=== PATIENT | female | born 1985 | race Caucasian/White ===

== ENCOUNTER 2023-02-07 22:13 | Outpatient (CLI) | payer OTHER, SELFPAY | END 2023-02-07 22:14 | disposition home or self-care (01) | LOC: AMB 02-10 12:27 | PROVIDERS: PCP Family Medicine; Visit Provider Internal Medicine | DX: S89.92XA Unspecified injury of left lower leg, initial encounter (principal); W00.0XXA Fall on same level due to ice and snow, initial encounter; Y92.007 Garden or yard of unspecified non-institutional (private) residence as the place of occurrence of the external cause | CPT/HCPCS: A0425; A0433 ==

== ENCOUNTER 2023-02-07 22:52 | Emergency (ER) | payer OTHER, SELFPAY ==
[2023-02-07 23:04] VITALS: BP 143/91; PULSE 96; RESP 20; TEMP 36.6; O2SAT 98; BMI 22.1
--- NOTE | 2023-02-07 23:06 | CRLHL7_ITS ---
For Patients: As a result of the Cures Act, medical imaging exams and procedure reports are released immediately into your electronic medical record. You may view this report before your referring provider. If you have questions, please contact your health care provider. Indication: Fall with knee injury Technique: Three views left knee Comparison: None Findings: Bones: Lateral dislocation of the patella. Small displaced fracture fragment likely originating from the medial aspect of the patella. Joint spaces: Unremarkable. Soft tissues: Fat stranding in the infrapatellar fat. Impression: Lateral dislocation of the patella with small, displaced fracture likely from the medial aspect of the patella. Dictated by Venecia Longo MD @ 02/07/2023 11:35:07 PM (Electronically Signed)
[2023-02-07] MEDS: ONDANSETRON 2 MG/ML inj 4 MG IVP (23:24)
[2023-02-07] MEDS: HYDROmorphone 0.5 mg/0.5 ml inj 1 MG IVP (23:29)
--- NOTE | 2023-02-07 23:45 | ED_ITS ---
HPI - Fall General Chief Complaint: Fall/Minor Trauma Stated Complaint: Knee injury Time Seen by Provider: 02/07/23 23:04 History of Present Illness HPI Narrative: Pt is a 38 year old woman who was leaving her friends house tonight when she slipped on the ice. Pt twisted her left knee and developed extreme pain. She did not hit her head or lose consciousness and has no other injuries. Pt has an obviously dislocated patella which is also seen on x ray no other fractures seen with the exception of the tendon insertion fragment of the displaced patella. Pt has not skin breakdown. No other symptoms. She has been in good health previously. Pt was brought in by ambulance and received ketamine and fentanyl en route. Related Data Home Medications Medication Instructions Recorded Confirmed fluoxetine 60 mg tablet 60 mg PO DAILY 02/07/23 02/07/23 tramadol 50 mg tablet 50 mg PO Q4-6H PRN pain 02/07/23 02/07/23 Allergies Allergy/AdvReac Type Severity Reaction Status Date / Time ciprofloxacin Allergy Verified 02/07/23 23:04 Review of Systems Status of ROS: Reports: 10 or more systems reviewed and unremarkable except as noted in History and below [facility] Medical History (Updated 02/08/23 @ 00:12 by Agapito Valentine MD) Depression Social History Smoking Status: Never smoker Do you use any of these nicotine containing products: None How often do you have a drink containing alcohol: 2-4 times a month How many standard drinks containing alcohol do you have on a typical day: 1 or 2 AUDIT-C Alcohol total score: 2 Non-prescribed substance use: denies use service: No Exam Narrative: Exam Narrative: EXAM GENERAL: Patient appears comfortable and well. EYES: No scleral icterus. THYROID: no thyroid nodules or thyromegaly. LYMPH: No supraclavicular or cervical lymphadenopathy. SKIN: Visible skin seen during exam normal or with benign process only. EXT: Swollen left knee with laterally displaced patella noted. HEART: Regular rate and rhythm with no murmurs, rubs, or gallops. LUNGS: Clear to auscultation bilaterally with no crackles or wheezes. ABD: Soft, non tender, non distended. PSYCH: Good eye contact, speech is not pressured. Const: Vital Signs, click to edit/add: Vital Signs - 24 hr 02/07/23 23:04 Temperature 97.8 F Pulse Rate [Right Pulse Oximeter] 96 Respiratory Rate 20 Blood Pressure [Ri ght Upper Arm] 143/91 H Pulse Oximetry 98 Oxygen Delivery Me thod Room Air Course Course Hospital Course: Pt seen and examined. Xray reviewed. Pt unable to get propofol due to po status. I was able to reduce the dislocation with medial pressure on the patella with current pain medications only. X ray confirms reduction of the dislocation. Vital Signs Vital signs: Initial Vital Signs Temperature 97.8 F 02/07/23 23:04 Temperature Source Temporal Artery Scan 02/07/23 23:04 Pulse Rate 96 02/07/23 23:04 Pulse Rhythm 02/07/23 23:04 Pulse Strength 3+ Normal 02/07/23 23:04 Respiratory Rate 20 02/07/23 23:04 Blood Pressure 143/91 H 02/07/23 23:04 Blood Pressure Mean 108 02/07/23 23:04 Blood Pressure Position Supine 02/07/23 23:04 Pulse Oximetry 98 02/07/23 23:04 Oxygen Delivery Method 02/07/23 23:04 Vital Signs Temperature 97.8 F 02/07/23 23:04 Pulse Rate 96 02/07/23 23:04 Respiratory Rate 20 02/07/23 23:04 Blood Pressure 143/91 H 02/07/23 23:04 Pulse Oximetry 98 02/07/23 23:04 Oxygen Delivery Method 02/07/23 23:04 Temperature 97.8 F 02/07/23 23:04 Pulse Rate 96 02/07/23 23:04 Respiratory Rate 20 02/07/23 23:04 Blood Pressure 143/91 H 02/07/23 23:04 Pulse Oximetry 98 02/07/23 23:04 Oxygen Delivery Method 02/07/23 23:04 MDM - Fall MDM Narrative Medical decision making narrative: Pt presents with left sided knee pain after falling on the ice. X ray shows a lateral dislocation of the patella. This is reduced in the ED. Will place in a knee immobilizer with ice, tylenol and motrin and orthopedics follow up in the next 3-5 days. Crutches in the interim. Differential included ligamentous injury, sprain, fracture or dislocation. Medical Records Attestation: I reviewed the patient's medical records. Discharge Plan Discharge Clinical Impression: Dislocated patella Condition: Stable Instructions: Knee Dislocation (ED) Additional Instructions: Ice Tylenol Motrin Knee Brace Crutches Follow up with Ortho this coming week Activity Level: No Restrictions Discharge Diet: Regular Prescriptions: No Action tramadol 50 mg tablet 50 mg PO Q4-6H PRN (Reason: pain) fluoxetine 60 mg tablet 60 mg PO DAILY Follow Up/Referrals: Ciic Copeland DO [Primary Care Provider] - Stand Alone Forms: MyHealth Info Instructions
--- NOTE | 2023-02-08 00:06 | CRLHL7_ITS ---
For Patients: As a result of the Century Cures Act, medical imaging exams and procedure reports are released immediately into your electronic medical record. You may view this report before your referring provider. If you have questions, please contact your health care provider. Indication: Postreduction patellar dislocation Technique: Three views left knee Comparison: February 07, 2023 Findings/Impression: : Interval reduction of a left patellar dislocation. There is a displaced fracture of the medial patella. The fracture fragment is within the medial patellofemoral joint. Moderate suprapatellar effusion. Subtle cortical irregularity of the distal femur on the lateral view may represent a small cortical fracture. Dictated by Venecia Longo MD @ 02/08/2023 12:45:57 AM (Electronically Signed)
[2023-02-08] MEDS: ONDANSETRON ODT 4 MG TAB PO (01:20)
[2023-02-08 01:25] VITALS: BP 114/84; PULSE 80; RESP 16; O2SAT 100
== END 2023-02-08 01:27 | disposition home or self-care (01) ==
LOC: ED 02-08 00:17
PROVIDERS: Emergency Provider Internal Medicine; PCP Family Medicine
DX: S82.041A Displaced comminuted fracture of right patella, initial encounter for closed fracture (principal); W00.9XXA Unspecified fall due to ice and snow, initial encounter
CPT/HCPCS: 27560; 73562; 96374; 96375; 99283; 99284; A9270; J1170; J2405

== ENCOUNTER 2023-02-13 10:42 | Outpatient (CLI) | payer OTHER, SELFPAY ==
--- NOTE | 2023-02-13 11:15 | MR_ITS ---
[address] [address] Phone:?[phone] Fax:?[phone] Referring Physician Information: Demarcus Henderson M.D. [id number] [facility] [address] Phone:?[phone] Fax:?[phone] Patient:Nj Olvera D.O.B:?1985 Sex:?Female Phone:?[phone] [facility] MRN:?[id number] Exam Date:?02/13/2023 ? EXAM: MRI of the LEFT KNEE, without contrast CLINICAL HISTORY: Left knee patellar dislocation. Date of injury 02/07/2023. Evaluate for loose body. COMPARISONS: Plain radiographs 02/08/2023 and 02/07/2023. TECHNICAL: MR sequences of the left knee: sagittals: PD, PDFS coronals: PD, T2FS axials: PD, PDFS CONTRAST: None SEDATION: None FINDINGS: Bones: There is a 1.5 cm in length by 0.8 cm in width mildly impacted fracture of the lateral femoral trochlea best seen on sagittal series 6 image 21. There is bone marrow contusion of the adjacent peripheral portion of the lateral femoral condyle. There is comminuted intra-articular fracture of the medial aspect of the patella at the attachment of the medial retinaculum/medial patellofemoral ligament. Patellofemoral joint: Cartilage: There is a 1.5 cm in AP dimension by 1.0 cm in transverse dimension area of full-thickness chondral injury over the mildly impacted fracture of the lateral femoral trochlea. There is a 1.0 x 1.0 cm area of near full-thickness chondromalacia over the inferior portion of the lateral patellar facet. Retinacula: Extensive full-thickness tearing of the medial retinaculum/medial patellofemoral ligament at the patellar attachment. The lateral retinaculum is intact. Fat pads: Edema-like signal within the superolateral portion of the infrapatellar fat pad is associated with patellar tendon-lateral femoral condyle friction/patellar maltracking. The Insall Salvati index index measures 1.56. The lateral trochlear inclination angle measures 7 degrees. The tibial tubercle to trochlear groove distance measures 2.0 cm. Knee joint: Effusion: Moderate left knee hemarthrosis. Popliteal cyst: None. Intra-articular bodies: Multiple sub-5 mm low and intermediate signal foci within the lateral patellofemoral recess may represent intra-articular chondral bodies but are nonspecific. A 7 x 5 x 5 mm medial patellar fracture fragment appears embedded within adjacent soft tissues best seen on axial series 3 images 10 and 11. Posteromedial corner: There is moderate semimembranosus-medial collateral ligament bursitis. The pes anserine tendons are intact. Medial compartment: Medial meniscus: Intact. Cartilage: Intact. Lateral compartment: Lateral meniscus: Intact. Cartilage: Intact. Ligaments: Anterior cruciate ligament: Intact. Posterior cruciate ligament: Intact. Medial collateral ligament: Intact. Posterior oblique ligament: Intact. Fibular collateral ligament: Intact. Posterolateral corner: The distal biceps femoris tendon, iliotibial band, popliteus tendon, popliteus muscle, popliteofibular ligament, and arcuate ligament are intact. Extensor mechanism: Patellar tendon: Intact. Quadriceps tendon: Intact. IMPRESSION: 1. Sequelae of lateral patellar dislocation injury include mildly impacted fracture of the lateral femoral trochlea and bone marrow contusion of the adjacent peripheral portion of the lateral femoral condyle, comminuted intra- articular fracture of the medial aspect of the patella at the attachment of the medial retinaculum/medial patellofemoral ligament, and extensive full-thickness tearing of the medial retinaculum/medial patellofemoral ligament at the patellar attachment. 2. 1.5 x 1.0 cm area of full-thickness chondral injury over the mildly impacted fracture of the lateral femoral trochlea. 1.0 x 1.0 cm area of near full- thickness chondromalacia over the inferior portion of the lateral patellar facet. 3. Multiple sub-5 mm low and intermediate signal foci within the lateral patellofemoral recess may represent intra-articular chondral bodies but are nonspecific. A 7 x 5 x 5 mm medial patellar fracture fragment appears embedded within the adjacent soft tissues. 4. Moderate left knee hemarthrosis. 5. Edema-like signal within the superolateral portion of the infrapatellar fat pad is associated with patellar tendon-lateral femoral condyle friction/patellar maltracking. Patella stormy. 6. 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 The tibial tubercle to trochlear groove distance measures 2.0 cm. 7. Moderate semimembranosus-medial collateral ligament bursitis. 8. No cruciate or collateral ligament injury or meniscal tear of the left knee. Intact medial and lateral compartment cartilage. RCB Electronically signed on 02/13/2023 12:44:00 PM by Toribio Swanson M.D.
== END 2023-02-13 10:43 | disposition home or self-care (01) ==
LOC: MRI 10:42
PROVIDERS: PCP Family Medicine; Visit Provider Orthopaedic Surgery
DX: S83.095A Other dislocation of left patella, initial encounter (principal); M94.262 Chondromalacia, left knee; M71.562 Other bursitis, not elsewhere classified, left knee
CPT/HCPCS: 73721

== ENCOUNTER 2023-04-25 10:30 | Outpatient (RCR) | payer OTHER, SELFPAY | END 2023-06-09 15:59 | disposition home or self-care (01) | PROVIDERS: PCP Family Medicine; Visit Provider Orthopaedic Surgery | DX: S83.006A Unspecified dislocation of unspecified patella, initial encounter (principal); M25.562 Pain in left knee; Z51.89 Encounter for other specified aftercare | CPT/HCPCS: 97110; 97140; 97161 ==

== ENCOUNTER 2025-01-03 13:00 | Outpatient (RCR) | payer OTHER, SELFPAY | END 2025-05-03 23:59 | disposition home or self-care (01) | PROVIDERS: PCP Family Medicine; Visit Provider Orthopaedic Surgery | DX: S83.005D Unspecified dislocation of left patella, subsequent encounter (principal); Z51.89 Encounter for other specified aftercare | CPT/HCPCS: 97110; 97140; 97162 ==